=== PATIENT | female | born 2000 | race Caucasian/White ===

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

== ENCOUNTER → 2020-05-12 | Emergency (ER) | payer BC ==
[~2020-05-12] VITALS: Ht 165.1 cm; Wt 61.2 kg
[~2020-05-12] MED LIST changes: +MOBIC7.5 MG PO
[2020-05-12 20:23] VITALS: BP 97/50
== END ==
LOC: ER 17:56
DX: R10.2 Pelvic and perineal pain (principal); Z53.21 Procedure and treatment not carried out due to patient leaving prior to being seen by health care provider